=== PATIENT | male | born 1945 | race Caucasian/White ===

== ENCOUNTER 2016-09-13 19:59 | Emergency (ER) | payer MEDICARE, MEDICAID ==
[~2016-09-13] VITALS: Ht 182.9 cm; Wt 68.0 kg
[2016-09-13 21:05] VITALS: BP 143/79
== END 2016-09-14 06:12 | disposition home or self-care (01) ==
LOC: ER 20:17
DX: M54.5 Low back pain (principal); M79.1 Myalgia; F17.210 Nicotine dependence, cigarettes, uncomplicated; I48.91 Unspecified atrial fibrillation; W19.XXXA Unspecified fall, initial encounter; Y93.89 Activity, other specified; Y99.8 Other external cause status; Y92.89 Other specified places as the place of occurrence of the external cause